=== PATIENT | male | born 1945 | race Caucasian/White ===

== ENCOUNTER → 2017-03-29 | Outpatient (CLI) | payer MEDICARE, OTHER ==
[~2017-03-29] VITALS: Ht 195.6 cm; Wt 127.0 kg
[~2017-03-29] MED LIST: ACYC400T PO; ALLO100T PO; APIX2.5T PO; ASP325T; ASPI-586 PO; ATOR40TA PO; ATOR40TA70 PO; BUME1TAB4 PO; CARV6.25 PO; CARV6.252 PO; CATHETER FLUSH 10 ML SYR IV PRN; CHOL200025 PO; CLIN300C3 PO; CNC1KV IJ; EMPA10TA PO; ESOM20CA; FEBU40TA PO; FISH OIL OMEGA1 EAC1 PO; FOLI1TAB24 PO; FRSM40T PO; GLIP5TAB13 PO; IRON PO; LEVO75TA6 PO; LINA5TAB PO; LSNP20T; LVT.025T; LVT.05T; METFOR850T; NIASPAN; OMACOR; PANT40TA3 PO; POTA20TA8 PO; REGADENOSON 0.4 MG/5 ML SYR (LEXISCAN) IV ONE; SPIR25TA3 PO; VYTORIN
[2017-03-29 09:20] VITALS: BP 133/82
--- NOTE | 2017-03-31 14:22 | STRESS TEST ---
DATE OF SERVICE: 03/29/2017 RESTING AND POST REGADENOSON TECHNETIUM-99M TETROFOSMIN SPECT CT IMAGING ORDERING PHYSICIAN: Yara Rodríguez APRN PRIMARY PHYSICIAN: Dr. Lindsay. OTHER PHYSICIAN: Dr. Coughlin. CLINICAL DIAGNOSES: Coronary artery disease, hypertension. Baseline images were carried out after injection of 10.78 mCi of Technetium-99M Tetrofosmin. This was followed by 0.4 mg regadenoson and 29.7 mCi of Technetium-99M Tetrofosmin for stress imaging. The electrocardiogram shows atrial fibrillation with right bundle branch block throughout the study. The electrocardiogram did not change significantly with the regadenoson infusion. The patient tolerated the procedure well. Review of images at rest and following stress does not indicate any significant perfusion defects consistent with significant myocardial ischemia or infarction. Gated images show normal global left ventricular systolic function with normal regional wall motion. Left ventricular ejection fraction is calculated to be 68%. Left ventricular end diastolic volume is 95 mL. TID is absent (1.02). CONCLUSIONS: 1. No evidence of any significant myocardial ischemia or infarction on this study. 2. Normal regional wall motion. 3. Normal global left ventricular systolic function with a calculated ejection fraction of 68%. Job ID: [id number] DocumentID: [id number] Dictated Date: 03/31/2017 11:53:48 Fish Icer Date: 03/31/2017 12:46:47 Dictated By: DALE COUGHLIN MD, MA, FACP, FACC,
== END ==
LOC: CARD 07:01
PROVIDERS: ATTEND Nurse Practitioner Family
DX: I25.10 Atherosclerotic heart disease of native coronary artery without angina pectoris (principal); I65.23 Occlusion and stenosis of bilateral carotid arteries; I48.2 Chronic atrial fibrillation; I12.9 Hypertensive chronic kidney disease with stage 1 through stage 4 chronic kidney disease, or unspecified chronic kidney disease; N18.3 Chronic kidney disease, stage 3 (moderate); E78.4 Other hyperlipidemia; I48.0 Paroxysmal atrial fibrillation
CPT/HCPCS: 78452; 93017